=== PATIENT | female | born 1950 | race Caucasian/White ===

== ENCOUNTER 2017-02-14 06:45 | Day surgery (SDC) | payer MEDICARE, OTHER ==
[~2017-02-14] VITALS: Ht 165.1 cm; Wt 95.7 kg
[~2017-02-14 06:45] MED LIST: ALL DAY ALLERGY10 M3 PO; BACLOFEN10 MG PO; BACTRIM 400-801 EACH PO; BIOTIN5 MG PO; BUPROPION HCL100 MG PO; CYMBALTA60 MG PO; DOCUSATE SODIU100 MG PO; ELMIRON100 MG PO; FIBER LAXATIV0.52 GM PO; FIBER-STAT15 GM/30 M PO; FLONASE2 SPRAY NS; FLUTICASONE PRO16 GM NAS; FUROSEMIDE40 MG PO; GABAPENTIN300 MG PO; GABAPENTIN600 MG PO; KEFLEX500 MG PO; L-METHYLFOLATE15 M1 PO; LEVOTHYROXINE100 MCG PO; LYRICA50 MG PO; MELOXICAM15 MG PO; MORPHINE SULFA100 M3 PO; MORPHINE SULFAT30 M2 PO; MORPHINE SULFAT60 M3 PO; MS CONTIN30 MG PO; MS CONTIN60 MG PO; NORCO 5-325 TA1 EACH PO; OMEPRAZOLE20 MG PO; OXYCODONE HCL20 M1 PO; OXYCODONE HCL5 MG PO; PHENAZOPYRIDIN200 MG PO; POTASSIUM CHLO20 ME1 PO; POTASSIUM CHLO20 ME2 PO; PRILOSEC20 MG PO; PROPRANOLOL HCL10 MG PO; SINGULAIR10 MG PO; SYNTHROID175 MCG PO; TRIMETHOPRIM100 MG PO; TYLENOL325 MG PO; VITAMIN B125000 MCG PO; VITAMIN D250000 UNIT PO; VITAMIN D350000 UNIT PO; VITAMIN D5000 UNIT PO; WELLBUTRIN SR100 MG PO; ZYRTEC10 M3 PO
--- NOTE | 2017-02-14 09:16 | NUR ---
02/14/17 0916 Katy Carlin 0903 RESP EVEN AND UNLABORED. 0910 PT DROWSY, REORIENTED TO PACU. WARM BLACKET APPLIED.
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
== END 2017-02-14 10:10 | disposition home or self-care (01) ==
LOC: DS 06:45 → OPS 06:45 → DS 08:45 → OPS 10:10
PROVIDERS: Colon & Rectal Surgery
PROC: 0DJD8ZZ Inspection of Lower Intestinal Tract, Via Natural or Artificial Opening Endoscopic (ICD-10-PCS; principal; 2017-02-14 08:15)
DX: Z12.11 Encounter for screening for malignant neoplasm of colon (principal); K64.8 Other hemorrhoids; K21.9 Gastro-esophageal reflux disease without esophagitis; I25.10 Atherosclerotic heart disease of native coronary artery without angina pectoris; E66.9 Obesity, unspecified; E03.9 Hypothyroidism, unspecified; F32.9 Major depressive disorder, single episode, unspecified; G62.9 Polyneuropathy, unspecified; G89.4 Chronic pain syndrome; G43.909 Migraine, unspecified, not intractable, without status migrainosus; M19.90 Unspecified osteoarthritis, unspecified site; Z98.890 Other specified postprocedural states; Z87.891 Personal history of nicotine dependence; Z79.899 Other long term (current) drug therapy; Z68.35 Body mass index [BMI] 35.0-35.9, adult
CPT/HCPCS: G0104; 99156; 99157; J2704; J7120

== ENCOUNTER 2017-08-21 15:13 | Emergency (ER) | payer MEDICARE, OTHER ==
[~2017-08-21] VITALS: Ht 165.1 cm; Wt 95.7 kg
[2017-08-21] MEDS ORDERED: ALENDRONATE SOD70 MG PO (15:42)
[2017-08-21] MEDS ORDERED: SULFAMETHOXAZO1 EACH PO (15:48)
[2017-08-21] MEDS ORDERED: NORCO 10-325 T1 EACH PO (15:51)
== END 2017-08-21 15:35 | disposition home or self-care (01) ==
LOC: ED 15:13
DX: Z76.0 Encounter for issue of repeat prescription (principal)

== ENCOUNTER 2018-07-03 16:17 | Emergency (ER) | payer MEDICARE, OTHER ==
[~2018-07-03] VITALS: Ht 165.1 cm; Wt 95.7 kg
[~2018-07-03 16:17] MED LIST changes: +ALENDRONATE SOD70 MG PO; +CLINDAMYCIN HC300 MG PO; +NORCO 10-325 T1 EACH PO; +SULFAMETHOXAZO1 EACH PO
--- OUTSIDE RECORDS SUMMARY | 2018-07-03 16:20 | XMS ---
PreManage Notification: PARADISE EDEN Security Insulation Worker Events No recent Security Events currently on file CRITERIA MET - [facility] - Has Care Guidelines - PDMP CARE PROVIDERS LASHAWN CROOK Internal Medicine 01/16/2018-Current PHONE: Unknown Ilda Wyatt C Primary Care Current PHONE: Unknown Diane has no Care Guidelines for this patient. Care History Medical/Surgical 01/16/2018 [facility] - Patient is currently established with [facility]. If patient is seen in the ED during business hours. Please contact [facility]Ws at [facility]. Care Recommendation: This patient has had 5 or more Emergency Department visits in the last 12 months.\T\nbsp; Patient requires education on the scope and purpose of the ED as an acute care provider not a Primary Care Provider and should not be utilized for chronic conditions.\T\nbsp;These are guidelines and the provider should exercise clinical judgment when providing care E.D. VISIT COUNT (12 MO.) 3 JERICA Polanco TOTAL 3 NOTE: Visits indicate total known visits. ED/UCC VISIT TRACKING (12 MO.) 07/03/2018 16:18 JERICA Anderson [place] TYPE: Emergency COMPLAINT: - BACK PAIN 01/16/2018 09:29 JERICA Anderson [place] TYPE: Emergency COMPLAINT: - FACIAL SWELLING/FEVER DIAGNOSES: - Sialoadenitis, unspecified - Anemia, unspecified - Localized swelling, mass and lump, head - Other assisted (current) drug therapy - Hypothyroidism, unspecified - Essential (primary) hypertension - Major depressive disorder, single episode, unspecified - Gastro-esophageal reflux disease without esophagitis 08/21/2017 15:14 JERICA Anderson [place] TYPE: Emergency COMPLAINT: - PAIN MED REFILL REQUEST/MSE TO HOME DIAGNOSES: - Encounter for issue of repeat prescription INPATIENT VISIT TRACKING (12 MO.) No inpatient visits to display in this time frame [email or web address]
[2018-07-03] MEDS ORDERED: PAIN RELIEF325 MG PO (16:56)
[2018-07-03] MEDS ORDERED: NARCAN4 MG IM (16:57)
[2018-07-03] MEDS ORDERED: PERCOCET 5-3251 EACH PO (16:58)
== END 2018-07-03 18:44 | disposition home or self-care (01) ==
LOC: ED 16:17
DX: M54.5 Low back pain (principal); E03.9 Hypothyroidism, unspecified; F32.9 Major depressive disorder, single episode, unspecified; K21.9 Gastro-esophageal reflux disease without esophagitis; I10 Essential (primary) hypertension; D64.9 Anemia, unspecified; Z87.891 Personal history of nicotine dependence; Z79.899 Other long term (current) drug therapy
CPT/HCPCS: 72100; 99283

== ENCOUNTER 2021-12-30 05:50 | Day surgery (SDC) | payer MEDICARE, OTHER ==
[~2021-12-30] VITALS: Ht 165.1 cm; Wt 101.4 kg
[~2021-12-30 05:50] MED LIST changes: +ALL DAY ALLERGY10 MG PO; +ASPERCREME ARTH50 GM; +BLINK TEARS15 ML; +BUPRENORPHINE1 EAC2 TD; +FERRETTS325 MG; +FLONASE ALLERG9.9 ML; +HAIR, SKIN & N1 EAC2 PO; +IBUPROFEN800 MG PO; +MACULAR HEALTH1 EACH PO; +MEDI-DERM-L CR120 ML TOP; +NARCAN4 MG IM; +NARCAN4 MG NS; +NYSTOP60 GM; +PAIN RELIEF325 MG PO; +PERCOCET 5-3251 EACH PO; +REFRESH LIQUIGE15 ML; +SENNA8.6 MG PO; +VITAMIN E OIL-V52 M1 TOP
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
--- NOTE | 2021-12-30 10:56 | NUR ---
PT ALERT, ORIENTED AND SEEMS RELAXED AND COMFORTABLE. THIS IS PT'S FIRST SCOPE ALL QUESTIONS ASKED ANSWERED. PT REQUESTED PRAYER, HAS RIDE ARRANGED AFTER DC. WILL FOLLOW NEEDED
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
--- NOTE | 2022-01-03 15:10 | PATH ---
[facility] [address] [place], [place] [address] Signed SPECIMEN(S): A ANTRUM/PYLORUS BIOPSY SPECIMEN SOURCE: A. ANTRUM/PYLORUS BIOPSY CLINICAL HISTORY: Reflux, cirrhosis of liver. Post: Hiatal hernia, gastritis (mild). FINAL PATHOLOGIC DIAGNOSIS: Antrum/pylorus biopsy: - Benign antral-type mucosa with slight reactive features and minimal chronic inflammation. - Negative for evidence of Helicobacter organisms on routine HE-stained sections. JVR:em:C2NR MICROSCOPIC EXAMINATION: Histologic sections of all submitted blocks are examined by light microscopy. These findings, together with the gross examination, support the pathologic diagnosis. GROSS DESCRIPTION: The specimen, labeled "PT, antrum/pylorus biopsy," is received in formalin and consists of one dawn soft tissue fragment that measures 0.3 cm in greatest dimension. The specimen is entirely submitted in cassette (A1). VB (under the direct supervision of a pathologist) The Gross Description was prepared using a voice recognition system. The report was reviewed for accuracy; however, sound-alike word errors, addition and/or deletions may occur. If there is any question about this report, please contact Client Services. PERFORMING LABORATORY: The technical component was performed by [facility], [address] [place] [id number] (CLIA# [id number]). The professional interpretation was performed by [facility], [facility], [address] [place] [address] (CLIA#: [id number]). Diagnostician: Ubaldo Dodson MD Pathologist Electronically Signed 01/03/2022 PATIENT NAME: PARADISE EDEN PATHOLOGY DATE OF : 52 REPORT #: [id number] PHYSICIAN: [facility] PATHOLOGY PCP: JENNIFFER ALVAREZ MD REPORT IS CONFIDENTIAL AND NOT TO BE RELEASED WITHOUT AUTHORIZATION [address] [address] Signed Copies: ~ PATIENT NAME: PARADISE EDEN PATHOLOGY DATE OF : 52 REPORT #: [id number] PHYSICIAN: [facility] PATHOLOGY PCP: JENNIFFER ALVAREZ MD REPORT IS CONFIDENTIAL AND NOT TO BE RELEASED WITHOUT AUTHORIZATION
== END 2021-12-30 09:15 | disposition home or self-care (01) ==
LOC: DS 05:50
PROVIDERS: ATTEND Colon & Rectal Surgery
PROC: 0DB68ZX Excision of Stomach, Via Natural or Artificial Opening Endoscopic, Diagnostic (ICD-10-PCS; principal; 2021-12-30 07:30)
DX: K74.60 Unspecified cirrhosis of liver (principal); I85.10 Secondary esophageal varices without bleeding; D61.818 Other pancytopenia; R16.1 Splenomegaly, not elsewhere classified; K31.9 Disease of stomach and duodenum, unspecified; K44.9 Diaphragmatic hernia without obstruction or gangrene
CPT/HCPCS: 36415; 85610; 87077; J1170; J2704; J7121

== ENCOUNTER 2023-07-04 10:25 | Emergency (ER) | payer MEDICARE, OTHER ==
[~2023-07-04] VITALS: Ht 165.1 cm; Wt 106.9 kg
[2023-07-04] MEDS ORDERED: CARVEDILOL3.125 MG PO (10:40)
[2023-07-04] MEDS ORDERED: OMEPRAZOLE40 MG PO (10:41)
[2023-07-04] MEDS ORDERED: BRINTELLIX20 MG PO (10:41)
[2023-07-04] MEDS ORDERED: SODIUM CHLORIDE 0.9% 500 ML IV PRN ×2 (10:45→12:15)
[2023-07-04] MEDS ORDERED: MIDAZOLAM HCL 2 MG/2 ML VIAL IV ONE (11:30)
[2023-07-04] MEDS ORDERED: KETAMINE HCL IN NACL, ISO-OSM 100 ML IV SCH (12:30)
[2023-07-04] MEDS ORDERED: KETAMINE in NS 50 MG/5 ML SYR IV ONE (12:30)
[2023-07-04] MEDS ORDERED: KETOROLAC TROMETHAMINE 15 MG/ML VIAL IV ONE (12:30)
[2023-07-04 12:37] LABS: HEMATOCRIT 42.2 % (35.0-50.0); MCH 30.5 (27-36); MCHC 33.1 g/dl (30-36); MCV 91.9 fl (81-99); PLATELET COUNT 285 K/uL (140-440); RBC 4.59 M/ul (4.3-5.7); RDW 14.3 (10.5-15.0)
[2023-07-04] MEDS ORDERED: ATROPINE SULFATE 1 MG/10 ML SYR IV SCH (12:45)
[2023-07-04] MEDS ORDERED: EPINEPHrine HCL 1 MG/10 ML SYR IV SCH (12:45)
[2023-07-04] MEDS ORDERED: NOREPINEPHRINE BITARTRATE 250 ML IV SCH (12:45)
[2023-07-04 12:48] LABS: ALBUMIN 2.9 g/dL (3.4-5.0); ALBUMIN/GLOBULIN RATIO 0.81 (1.1-2.4); ALKALINE PHOSPHATASE 62 U/L (46-116); ALT (SGPT) 14 U/L (14-59); AMYLASE 28 U/L (25-115); ANION GAP 12.7 (7-21); AST (SGOT) 19 U/L (15-37); BILIRUBIN, TOTAL 0.6 ng/dL (0.2-1.0); BUN/CREATININE RATIO 12.96 (6.0-28.6); CALCIUM 9.2 mg/dL (8.5-10.1); CARBON DIOXIDE 29 mmol/L (21-32); CHLORIDE 106 mmol/L (98-107); CREATINE KINASE 56 U/L (26-192); CREATININE, SERUM 1.08 mg/dL (0.55-1.02); GLOMERULAR FILTRATION RATE,EST 55 mL/min (>60); POTASSIUM 4.7 mmol/L (3.5-5.1); PROTEIN, TOTAL 6.5 g/dL (6.4-8.2); UREA NITROGEN 14 mg/dL (7-18)
[2023-07-04 12:55] LABS: BASOPHILS, MANUAL DIFF 1; EOSINOPHILS, MANUAL DIFF 2; LYMPHOCYTES, MANUAL DIFF 22; MONOCYTES, MANUAL DIFF 8; NEUTROPHILS, MANUAL DIFF 67
[2023-07-04] MEDS ORDERED: AMIODARONE HCL 150 MG/3 ML VIAL IV ONE (13:00)
[2023-07-04 13:04] LABS: ALCOHOL, MEDICAL <3 ng/dL (<3)
[2023-07-04 13:04] LABS: BILIRUBIN, URINE NEGATIVE (negative); BLOOD/HGB, URINE NEGATIVE (Negative); KETONE, URINE NEGATIVE (Negative); LEUK ESTERASE, URINE TRACE (negative); NITRITE, URINE NEGATIVE (negative)
[2023-07-04 13:07] VITALS: BP 000/00
[2023-07-04 13:11] LABS: BACTERIA, URINE RARE /hpf (negative); CRYSTALS, URINE NONE SEEN (0-1+)
[2023-07-04 13:12] LABS: CASTS, URINE NONE SEEN \\lpf; COLLECTION TYPE, URINE CLEAN CATCH; REFLEX CULTURE, URINE No (No)
[2023-07-04 13:19] LABS: AMPHETAMINES, URINE POSITIVE (NEGATIVE); BARBITURATES, URINE NEGATIVE (NEGATIVE); BENZODIAZEPINE, URINE NEGATIVE (NEGATIVE); BUPRENORPHINE, URINE POSITIVE (NEGATIVE); CANNABINOID, URINE NEGATIVE (NEGATIVE); COCAINE, URINE NEGATIVE (NEGATIVE); ECSTASY, URINE POSITIVE (NEGATIVE); FENTANYL, URINE NEGATIVE (NEGATIVE); METHADONE, URINE NEGATIVE (NEGATIVE); OPIATES, URINE NEGATIVE (NEGATIVE); OXYCODONE, URINE POSITIVE (NEGATIVE); PHENCYCLIDINE, URINE NEGATIVE (NEGATIVE)
[2023-07-04 13:22] LABS: ABO B; ANTIBODY SCREEN NEGATIVE; RH POSITIVE
--- NOTE | 2023-07-05 11:58 | EKG ---
[facility] [address] [facility] [place] [address] Signed Sinus tachycardia Rightward axis Low voltage QRS Septal infarct , age undetermined Abnormal ECG When compared with ECG of 22-DEC-2021 09:42, premature ventricular complexes are no longer present Vent. rate has increased BY [address] now depressed in Lateral leads Confirmed by Candido Mayberry ([id number]) on 07/05/2023 11:58:14 AM Electronically Signed By: CANDIDO MAYBERRY MD 07/05/23 1158 PATIENT NAME: PARADISE EDEN Electrocardiogram DATE OF : 52 PHYSICIAN: CANDIDO MAYBERRY MD REPORT #: [id number] REPORT IS CONFIDENTIAL AND NOT TO BE RELEASED WITHOUT AUTHORIZATION
== END 2023-07-04 15:15 ==
LOC: ED 10:25
PROVIDERS: Emergency Medicine
DX: I46.9 Cardiac arrest, cause unspecified (principal); M54.50 Low back pain, unspecified; M25.552 Pain in left hip; E03.9 Hypothyroidism, unspecified; F32.A Depression, unspecified; K21.9 Gastro-esophageal reflux disease without esophagitis; I10 Essential (primary) hypertension; M19.90 Unspecified osteoarthritis, unspecified site; G89.29 Other chronic pain; W05.0XXA Fall from non-moving wheelchair, initial encounter; Z87.891 Personal history of nicotine dependence; Z88.8 Allergy status to other drugs, medicaments and biological substances; Z79.899 Other long term (current) drug therapy; Z79.51 Long term (current) use of inhaled steroids; Z79.1 Long term (current) use of non-steroidal anti-inflammatories (NSAID); Z79.890 Hormone replacement therapy
CPT/HCPCS: 36415; 51702; 72131; 73700; 80053; 80307; 81001; 82150; 82553; 83605; 83690; 84484; 85025; 86850; 86900; 86901; 92950; 93005; 93010; 99285-25; G0480; J0171; J0282; J0461; J1885; J2250; J7040